=== PATIENT | female | born 1945 | race Caucasian/White ===

== ENCOUNTER → 2016-09-15 | Outpatient (CLI) | payer MEDICARE, OTHER ==
[~2016-09-15] MED LIST: ALEVE220 M1 PO; ALLERGY PILL; BACTRIM DS1 TAB PO; CALCIUM CARBON600 MG PO; COLACE100 MG PO; COMPAZINE10 MG PO; DETROL2 MG PO; DILANTIN100 MG PO; EQUATE LAXATIVE PO; GLUCOSAMINE HC500 MG PO; LEVAQUIN 750 M750 MG PO; LEVAQUIN750 MG PO; LIPITOR10 MG PO; LOMOTIL1 TAB PO; LOPERAMIDE2 MG PO; MAGNESIUM250 M1 PO; METAMUCIL FIBE1 EACH PO; MILK OF MA400 MG/5 M PO; MOTRIN400 MG PO; NORCO 5-325 MG1 TAB PO; NUCYNTA50 MG PO; PROBIOTIC1 EAC1 PO; ROXICODONE 5MG (5 MG PO; TENORMIN25 MG PO; TYLENOL325 MG PO; VITAMIN B-122500 MCG PO; VITAMIN D1000 UNIT PO
== END | disposition disaster alternative care site (69) ==
LOC: GKIC 11:20
DX: Z53.9 Procedure and treatment not carried out, unspecified reason (principal)

== ENCOUNTER → 2016-09-24 | Outpatient (CLI) | payer MEDICARE, OTHER | END | disposition disaster alternative care site (69) | LOC: GKIC 11:26 | DX: C20 Malignant neoplasm of rectum (principal); N95.0 Postmenopausal bleeding; N85.9 Noninflammatory disorder of uterus, unspecified | CPT/HCPCS: A9552 ==

== ENCOUNTER 2016-12-05 18:39 | Emergency (ER) | payer MEDICARE, OTHER ==
--- NOTE | ~2016-12-05 | ER ---
PATIENT'S NAME: MUMTAZ ULLOA [facility] AGE: 71 Y [address] ROOM: [place] [address] LOCATION: ED ADMIT DATE: 12/05/2016 ER/Outpatient Report DISCHARGE DATE: 12/05/2016 FAMILY PHYSICIAN: Jovanna Mitchell MD ATTENDING PHYSICIAN: Cornelio Lewis Admission date and time documented in the medical record. I saw the patient at 1855 hours. CHIEF COMPLAINT: Generalized weakness, shortness of breath, dysuria. HISTORY OF PRESENT ILLNESS: The patient is a 71-year-old female, who comes in with generalized weakness, that she has had gradually worsening over the past 7 to 10 days. The patient does have some lightheadedness and persistent loose stools. She is on chemotherapy for metastatic endometrial cancer. Today, she started to have some intermittent generalized muscle cramping in the major muscles. No fever, chills, or sweats. Little bit short of breath, but no cough or colds. No chest pain. No abdominal pain. No nausea or vomiting. She had some dysuria that started today along with some mild frequency. No other joint or muscle problems. No skin eruptions or rash. No headache, eyes, ears, nose, throat, neck, or spine pain. No fall or trauma. Does have a seizure disorder. No other neuro changes. No endocrine problems or psych issues. HOME MEDICATIONS: See attached medication list. ALLERGIES: SULFA AND CIPRO. SOCIAL HISTORY: Nonsmoker, nondrinker. 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 OPERATIONS: x3, cholecystectomy, cystoscopy with stent placement, right nephrectomy, colon resection with colostomy formation, radiation therapy, chemotherapy, recurrent urinary tract infections. REVIEW OF SYSTEMS: PATIENT'S NAME: MUMTAZ ULLOA [facility] AGE: 71 Y [address] ROOM: [place] [address] LOCATION: [facility] ADMIT DATE: 12/05/2016 ER/Outpatient Report DISCHARGE DATE: 12/05/2016 FAMILY PHYSICIAN: Jovanna Mitchell MD ATTENDING PHYSICIAN: Cornelio Lewis All systems reviewed by me are negative with the exception of those discussed in the history of present illness. PHYSICAL EXAMINATION: VITAL SIGNS: Pulse 105 and regular, respirations 24, blood pressure 168/105, O2 saturation on room air is 95%. HEAD: Normocephalic. No abrasion, contusion, laceration, swelling of the scalp or face. EYES: Extraocular muscles intact. PERRL. EARS: Clear TMs bilaterally. NOSE: Clear. THROAT: Clear. Mucous membranes moist. NECK: No nuchal rigidity. No thyromegaly or cervical adenopathy. No tenderness. SPINE: Negative. LUNGS: Clear. Good air flow. No rales, rhonchi, or wheezes. HEART: Regular. Pulses are palpable. ABDOMEN: Soft. Mild tenderness diffusely. No true guarding or rigidity. No rebound tenderness. Bowel tones present. No organomegaly or abnormal mass palpable. No CVA tenderness. EXTREMITIES: Without peripheral edema, cyanosis, or deformity. NEUROVASCULAR: Intact. SKIN: Clear. No skin eruptions or rash. LABORATORY DATA AND X-RAYS: Urine showed packed field whites, 5-10 reds, 2-5 epithelial cells, many bacteria per high-powered field, positive nitrites on dipstick, culture is pending. White count was 16,400, 75 segs, 12 lymphs, 9 monos, 2 eos, 1 baso, hemoglobin is 12.6, hematocrit 37.7, platelet count 311,000. CMS was normal except for a low chloride of 94, elevated glucose 124, elevated creatinine 1.6, and low GFR of 32. AST was elevated 42, alkaline phosphatase was elevated 181, magnesium was 1.8. EMERGENCY DEPARTMENT COURSE: I did give the patient 2 L normal saline IV in the emergency room with marked improvement in how she was feeling. IMPRESSION: 1. Dehydration. 2. Urinary tract infection. 3. History of endometrial cancer, spread throughout her abdomen. 4. Past history of colon cancer. 5. Seizure disorder. 6. Dyslipidemia. 7. Hypertension. PATIENT'S NAME: MUMTAZ ULLOA [facility] AGE: 71 Y [address] ROOM: [place], [place] [address] LOCATION: ED ADMIT DATE: 12/05/2016 ER/Outpatient Report DISCHARGE DATE: 12/05/2016 FAMILY PHYSICIAN: Jovanna Mitchell MD ATTENDING PHYSICIAN: Cornelio Lewis PLAN: The patient dismissed home. Observation. Activity as tolerated. Continue present home medications and care. Fluids and diet as tolerated. Nitrofurantoin 100 mg 1 twice a day for 10 days. Follow up with personal physician as scheduled. Discussion ensued the patient concerning my findings and recommendations, she understands. MD DEYVI PARK/glorial /[id number] d: 12/05/16 2338 t: 12/06/16 1809, OUTPATIENT REPORT
[~2016-12-05 18:39] MED LIST changes: -LEVAQUIN750 MG PO; -METAMUCIL FIBE1 EACH PO; -TYLENOL325 MG PO
[2016-12-05 19:15] LABS: BASOPHIL # 0.1 K/uL (0.0-0.2); BASOPHIL % 0.5 %; EOSINOPHIL # 0.3 K/uL (0.0-0.5); EOSINOPHIL % 1.9 %; HEMATOCRIT 37.7 % (33.0-46.0); HEMOGLOBIN 12.6 g/dL (10.0-15.0); IMMATURE GRANULOCYTE # 0.4 K/uL (0.0-0.3); IMMATURE GRANULOCYTE % 2.3 %; MCH 30.9 pg (27.0-34.0); MCHC 33.4 gm/dL (32.0-36.5); MCV 92.4 fl (83.0-98.0); MONOCYTE # 1.4 K/uL (0.0-1.0); MONOCYTE % 8.6 %; MPV 10.2 fl (9.4-12.4); NEUTROPHIL # (ANC) 12.2 K/uL (1.8-7.8); NEUTROPHIL % 74.7 %; NRBC % 0 /100WBC (0-0.00); PLATELET COUNT 311 K/uL (150-450); RBC 4.08 M/uL (3.50-5.50); WBC 16.4 K/uL (4.0-11.0)
[2016-12-05 19:34] LABS: ALBUMIN 3.8 gm/dL (3.5-5.0); CREATININE 1.6 mg/dL (0.5-1.1); TOTAL BILIRUBIN 0.2 mg/dL (0.0-1.5); TOTAL PROTEIN 8.6 g/dL (6.0-8.4)
[2016-12-05 19:36] LABS: ANION GAP 15.9 (10.0-19.0); MAGNESIUM 1.8 mg/dL (1.8-2.6); POTASSIUM 3.9 mMol/L (3.7-5.1)
[2016-12-05 20:57] LABS: BILIRUBIN URINE NEGATIVE (NEGATIVE); BLOOD URINE 150 /UL (NEGATIVE); COLOR URINE YELLOW (YELLOW); GLUCOSE URINE NEGATIVE (NEGATIVE); KETONE URINE NEGATIVE (NEGATIVE); LEUKOCYTES URINE 500 /UL (NEGATIVE); NITRITE URINE POSITIVE (NEGATIVE); PROTEIN URINE 100 mg/dL (NEGATIVE); SPEC GRAVITY URINE 1.015 (1.003-1.035); TURBIDITY URINE 4+ (CLEAR); UROBILINOGEN URINE NORMAL (NORMAL)
[2016-12-05 21:05] LABS: WBC URINE PACKED FIELD #/HPF (NEGATIVE)
[2016-12-05 21:06] LABS: BACTERIA URINE MANY (NEGATIVE)
== END 2016-12-05 21:32 | disposition disaster alternative care site (69) ==
LOC: GMED 18:39
PROVIDERS: Emergency Medicine
DX: E86.0 Dehydration (principal); N39.0 Urinary tract infection, site not specified; I10 Essential (primary) hypertension; E78.5 Hyperlipidemia, unspecified; G40.909 Epilepsy, unspecified, not intractable, without status epilepticus; Z85.42 Personal history of malignant neoplasm of other parts of uterus; Z85.038 Personal history of other malignant neoplasm of large intestine; Z90.5 Acquired absence of kidney; Z88.2 Allergy status to sulfonamides; Z88.1 Allergy status to other antibiotic agents; Z96.0 Presence of urogenital implants; Z92.3 Personal history of irradiation; Z79.899 Other long term (current) drug therapy; Z87.448 Personal history of other diseases of urinary system
CPT/HCPCS: J7030

== ENCOUNTER 2016-12-13 10:06 | Emergency (ER) | payer MEDICARE, OTHER ==
--- NOTE | ~2016-12-13 | ER ---
PATIENT'S NAME: MUMTAZ ULLOA [facility] AGE: 71 Y [address] ROOM: [place] [address] LOCATION: [facility] ADMIT DATE: 12/13/2016 ER/Outpatient Report DISCHARGE DATE: 12/13/2016 FAMILY PHYSICIAN: Jovanna Mitchell MD ATTENDING PHYSICIAN: Guadalupe Mcelroy Time of Arrival: 1006 hours. Time of Evaluation: 1015 hours. CHIEF COMPLAINT: Generalized weakness and history of cancer. HISTORY OF PRESENT ILLNESS: This is a 71-year-old female, who presents to the ER with her , who states that she has not been feeling very well since she woke up this morning. The patient states she has generalized weakness and has been getting some IV fluids recently to get her to feel better. They state they were here last Wednesday and received some IV fluids and that did make her feel better. They did follow up with her primary care physician, Dr. Shi, on and received some more IV fluids. Her states that she is needing this about every 3 days to make her feel better. She does have a history of metastatic endometrial cancer and she is on chemotherapy for that. The patient denies any fever or chills. No new cough or colds. No abdominal pain. No nausea or vomiting. She states that she is stooling fine through her ostomy site. She denies falling. No other problems at this time. ALLERGIES: PLEASE SEE MEDICATION LIST NURSE'S NOTES. MEDICATIONS: Please see medication list nurse's notes. PAST MEDICAL HISTORY: 1. Hypertension. 2. Dyslipidemia. 3. Seizure disorder. 4. Colon cancer. 5. Endometrial cancer, that has metastasized. 6. Right hydronephrosis with obstruction of the UV junction with resultant right nephrectomy. PAST SURGICAL HISTORY: 1. x3, cholecystectomy, cystoscopy with stent placement, right nephrectomy. 2. Colon resection with colostomy. PATIENT'S NAME: MUMTAZ ULLOA [facility] AGE: 71 Y [address] ROOM: [place] [address] LOCATION: ED ADMIT DATE: 12/13/2016 ER/Outpatient Report DISCHARGE DATE: 12/13/2016 FAMILY PHYSICIAN: Jovanna Mitchell MD ATTENDING PHYSICIAN: Navi,Guadalupe J SOCIAL HISTORY: Denies any smoking, drug, or alcohol use. REVIEW OF SYSTEMS: All systems reviewed and were negative with the exception of those discussed in the HPI. PHYSICAL EXAMINATION: VITAL SIGNS: Height 4 feet and 11 inches stated, weight 65.6 kg taken, pulse 82, respirations 18, temperature 98 degrees tympanically, and saturations 93% on room air. [place] Coma Score is 15. GENERAL: Alert, tearful, 71-year-old female, in no acute distress, but she does appear not to feel well. HEENT: Head: Normocephalic. Eyes: Pupils are equal and reactive to light. She does display moist mucous membranes. LUNGS: Clear to auscultation bilaterally. HEART: Regular rate and rhythm. ABDOMEN: Soft. She does have healed scarred lines to her abdomen. She has good output out of her ostomy site. NEURO: Cranial nerves II through XII are grossly intact. Gait is steady without assistance. SKIN: No other rashes are noted. LABORATORY DATA AND X-RAYS: CBC: White count is 8.8, hemoglobin is 10.7, and platelets 237. CMS: Sodium 137, potassium 3.5, glucose 107, BUN 8, and creatinine 0.9. Estimated GFR is greater than 60. Urinalysis; leukocytes 100, nitrites negative. UA micro; white blood cells 5 to 10, red blood cells 10 to 20, epithelial 0 to 2, bacteria negative. IMPRESSION: 1. Generalized weakness. 2. Diagnosis of metastatic endometrial cancer with a history of colon cancer. 3. Recent urinary tract infection, has improved with antibiotics. ASSESSMENT AND PLAN: The patient was having lots of tenderness around her recent port placement, so we decided to just place a peripheral IV on the patient and did give her a total of 2 L of IV fluids here and she did tolerate this well. She states this did make her feel better. We will dismiss her to home. She needs to continue to use her antibiotics that were prescribed. Monitor symptoms closely and she needs to follow up with her primary care physician in 3 days. The patient and the patient's understand and agree with care. PATIENT'S NAME: MUMTAZ ULLOA [facility] AGE: 71 Y [address] ROOM: [place] [address] LOCATION: ED ADMIT DATE: 12/13/2016 ER/Outpatient Report DISCHARGE DATE: 12/13/2016 FAMILY PHYSICIAN: Jovanna Mitchell MD ATTENDING PHYSICIAN: Guadalupe Mcelroy FEDERICA ELLIS PA-C FOR GUADALUPE MCELROY DO ACJ/modl /[id number] d: t: 12/16/16 1158, OUTPATIENT REPORT
[2016-12-13 10:44] LABS: BASOPHIL % 0.5 %; EOSINOPHIL # 0.1 K/uL (0.0-0.5); EOSINOPHIL % 1.2 %; HEMOGLOBIN 10.7 g/dL (10.0-15.0); IMMATURE GRANULOCYTE % 0.3 %; LYMPHOCYTE # 1.2 K/uL (0.8-4.0); LYMPHOCYTE % 13.1 %; MCH 30.9 pg (27.0-34.0); MCHC 33.4 gm/dL (32.0-36.5); MCV 92.5 fl (83.0-98.0); MONOCYTE # 0.8 K/uL (0.0-1.0); MONOCYTE % 9.1 %; MPV 9.6 fl (9.4-12.4); NEUTROPHIL # (ANC) 6.7 K/uL (1.8-7.8); NEUTROPHIL % 75.8 %; NRBC % 0 /100WBC (0-0.00); RBC 3.46 M/uL (3.50-5.50); RDW-CV 13.5 % (11.9-14.6); WBC 8.8 K/uL (4.0-11.0)
[2016-12-13 10:45] LABS: PLATELET COUNT 237 K/uL (150-450)
[2016-12-13 11:01] LABS: ALK PHOS 142 IU/L (33-138); ALT 26 IU/L (12-78); ANION GAP 11.5 (10.0-19.0); AST 29 IU/L (10-40); BLOOD UREA NITROGEN 8 mg/dL (6-24); CALCIUM 8.5 mg/dL (8.5-10.5); CHLORIDE 103 mMol/L (96-110); CO2 26 mMol/L (22-32); CREATININE 0.9 mg/dL (0.5-1.1); POTASSIUM 3.5 mMol/L (3.7-5.1); SODIUM 137 mMol/L (135-145); TOTAL PROTEIN 7.2 g/dL (6.0-8.4)
[2016-12-13 11:02] LABS: ESTIMATED GFR (MDRD EQUATION) > 60; TOTAL BILIRUBIN 0.3 mg/dL (0.0-1.5)
[2016-12-13 11:38] LABS: BILIRUBIN URINE NEGATIVE (NEGATIVE); BLOOD URINE 250 /UL (NEGATIVE); COLOR URINE YELLOW (YELLOW); GLUCOSE URINE NEGATIVE (NEGATIVE); KETONE URINE NEGATIVE (NEGATIVE); LEUKOCYTES URINE 100 /UL (NEGATIVE); NITRITE URINE NEGATIVE (NEGATIVE); PROTEIN URINE 30 mg/dL (NEGATIVE); SPEC GRAVITY URINE 1.005 (1.003-1.035); TURBIDITY URINE CLEAR (CLEAR); UROBILINOGEN URINE NORMAL (NORMAL)
[2016-12-13 11:47] LABS: BACTERIA URINE NEGATIVE (NEGATIVE); EPITHELIAL URINE 0-2 #/HPF (NEGATIVE)
== END 2016-12-13 12:43 | disposition disaster alternative care site (69) ==
LOC: GMED 10:06
PROVIDERS: Emergency Medicine
DX: R53.1 Weakness (principal); I10 Essential (primary) hypertension; G40.909 Epilepsy, unspecified, not intractable, without status epilepticus; E78.5 Hyperlipidemia, unspecified; N39.0 Urinary tract infection, site not specified; C18.9 Malignant neoplasm of colon, unspecified; C79.82 Secondary malignant neoplasm of genital organs; Z90.49 Acquired absence of other specified parts of digestive tract; Z90.5 Acquired absence of kidney; Z98.890 Other specified postprocedural states; Z88.2 Allergy status to sulfonamides; Z88.1 Allergy status to other antibiotic agents
CPT/HCPCS: J2001; J7030

== ENCOUNTER 2016-12-18 18:05 | Emergency (ER) | payer MEDICARE, OTHER ==
--- NOTE | ~2016-12-18 | ER ---
PATIENT'S NAME: MUMTAZ ULLOA [facility] AGE: 71 Y [address] ROOM: [place] [address] LOCATION: [facility] ADMIT DATE: 12/18/2016 ER/Outpatient Report DISCHARGE DATE: 12/18/2016 FAMILY PHYSICIAN: Jovanna Mitchell MD ATTENDING PHYSICIAN: Cornelio Lewis Admission date and time documented on the medical record. I saw the patient at 1824 hours. CHIEF COMPLAINT: Disrupted cap on her port that resulted in the port bleeding. HISTORY OF PRESENT ILLNESS: This patient is a 71-year-old female, who presented to the emergency room for inspection of her port. Her port was accessed yesterday. Cap came off about 15 minutes prior to admission to the emergency room, and the port was bleeding. She put the port cap back on. She called her oncologist, who had her report to the emergency department for evaluation and assessment of her port. The port cath cap was secured. We did flush the port successfully. Everything looks like it is functioning fine and everything is secured. No other complaints. No other problems. The patient does have a history of colon cancer, endometrial cancer with spread throughout the abdomen. She is undergoing chemotherapy. IMPRESSION: Port inspection and flushing. Port flushes normally. Port cap is secured. No other abnormalities were noted. PLAN: The patient dismissed home. Continue present home medications and care. Follow up with personal physician as needed or as scheduled. MD DEYVI PARK/modl /[id number] d: 12/18/16 232 t: 12/19/16 1809, OUTPATIENT REPORT
== END 2016-12-18 18:24 | disposition disaster alternative care site (69) ==
LOC: GMED 18:05
DX: T82.594A Other mechanical complication of infusion catheter, initial encounter (principal); Z88.1 Allergy status to other antibiotic agents; Z98.890 Other specified postprocedural states

== ENCOUNTER 2016-12-23 10:08 | Inpatient (IN) | payer MEDICARE, OTHER ==
[~2016-12-23] VITALS: Ht 149.9 cm; Wt 65.5 kg
--- NOTE | ~2016-12-23 | DS ---
PATIENT'S NAME: MUMTAZ ULLOA [facility] AGE: 71 Y [address] ROOM: [place] [address] LOCATION: [facility]PCU ADMIT DATE: 12/23/2016 Discharge Summary DISCHARGE DATE: 12/27/2016 FAMILY PHYSICIAN: Jovanna Mitchell MD ATTENDING PHYSICIAN: Patrick Rutherford ADDENDUM: Discharge medication list correction (the med list provided with the original discharge summary is incorrect). Corrected list: 1. Loperamide 6 mg p.o. q.i.d. 2. Levofloxacin 750 mg p.o. daily x7 more days. 3. Lomotil 2 tabs p.o. q.6h. p.r.n. 4. Dilantin 300 mg p.o. daily. 5. Acetaminophen 650 mg p.o. q.4 h. p.r.n. 6. Atorvastatin 10 mg p.o. q.h.s. 7. Atenolol 25 mg p.o. q.a.m. 8. Oxycodone 5 mg p.o. q.4 hours p.r.n. pain. 9. Compazine 10 mg p.o. daily p.r.n. 10. Allergy pill daily. 11. Psyllium seed 2 wafers t.i.d. MD JOSIE COUGHLIN/roger /[id number] d: 12/28/16 0256 t: 12/30/16 1436, DISCHARGE SUMMARY
--- NOTE | ~2016-12-23 | ER ---
PATIENT'S NAME: DECLAN ULLOAICE Geovanny [facility] AGE: 71 Y [address] ROOM: [place] [address] LOCATION: [facility]PCU ADMIT DATE: 12/23/2016 ER/Outpatient Report DISCHARGE DATE: FAMILY PHYSICIAN: Jovanna Mitchell MD ATTENDING PHYSICIAN: Patrick RUTHERFORD Time of Arrival: 1008 hours. Time of Evaluation: 1008 hours. CHIEF COMPLAINT: Fever, weakness. HISTORY OF PRESENT ILLNESS: The patient is a 71-year-old female who presents to the emergency department today with chief complaint of fever, weakness. Reports that she has not been feeling well. The patient does have a history of uterine cancer and colon cancer. The patient denies any chest pain. No abdominal pain. Does have some nausea. No vomiting. Has fevers and chills. Denies any headache. The pain is currently 0/10 in severity. She is having a cough. Does have shortness of breath. This is not significantly worse than her normal. Denies any back pain. No abdominal pain. No headache. PAST MEDICAL HISTORY: Hypertension, dyslipidemia, seizure disorder, colon cancer, endometrial cancer, right hydronephrosis with obstruction at the UVJ with right nephrectomy. PAST SURGICAL HISTORY: x3, cholecystectomy, cystoscopy with stent placement, right nephrectomy, colon resection with colostomy, radiation therapy, chemotherapy, recurrent urinary tract infections. SOCIAL HISTORY: The patient denies any tobacco, alcohol, or illicit drug use. ALLERGIES: BACTRIM, CIPROFLOXACIN. MEDICATIONS: Please see list. PRIMARY CARE DOCTOR: Dr. Mitchell. ONCOLOGIST: [facility]GE[facility] 71 Y [address] ROOM: [place] [address] LOCATION: GPCU ADMIT DATE: 12/23/2016 ER/Outpatient Report DISCHARGE DATE: FAMILY PHYSICIAN: Jovanna Mitchell MD ATTENDING PHYSICIAN: Patrick RUTHERFORD Dr.. REVIEW OF SYSTEMS: All systems are reviewed by myself and negative with the exception of those discussed in HPI and past medical history. PHYSICAL EXAMINATION: VITAL SIGNS: Weight 68.4 kg, blood pressure 159/74, pulse 100, respiratory rate 19, temperature 101, oxygen saturation 95% on room air. GENERAL: The patient is a 71-year-old female, who appears older than stated age. HEENT: Normocephalic, atraumatic. Pupils are equal, round, and reactive to light. Mucous membranes moist. NECK: Supple. No nuchal rigidity. CARDIOVASCULAR: Tachycardic. No murmurs, rubs, or gallops. LUNGS: Clear to auscultation bilaterally. No wheezes, rales, or rhonchi. ABDOMEN: Soft, nontender, and nondistended. No rebound, rigidity, or guarding. MUSCULOSKELETAL: The patient moves all 4 extremities. SKIN: Warm and dry. LABORATORY DATA AND X-RAYS: EKG was obtained, which is interpreted by myself at 1037 hours shows sinus tachycardia with a rate of 105 normal axis, normal interval. No ST elevation, ST depression. No T-wave inversions. CBC: White blood cell count 2.4, hemoglobin 9.8, hematocrit 29.7, platelets are 85, 30% bands. PT is 12.7, INR is 1.2. Troponin is normal. ProBNP is 160. Urinalysis shows 100 leukocyte esterase, 30 protein, 25 blood, 10 to 20 wbc's, 2 to 5 epithelials, rare bacteria. CMP: Potassium 3.2, CO2 of 21, glucose 62, alkaline phosphatase 243. LFTs normal. CK, CK-MB, and troponin are normal. Chest x-ray shows left basilar consolidation. Venous blood gas 7.42/37/60/24/negative 0.2, lactate 3.5, procalcitonin 0.97. IMPRESSION: 1. Severe sepsis. 2. Urinary tract infection. 3. Left basilar consolidation. 4. Thrombocytopenia. 5. Initial visit. EMERGENCY DEPARTMENT COURSE: The patient was brought back to the examination room. Seen immediately upon arrival by myself. IV was established. The patient was given 30 mL per kg IV bolus of normal saline. The results are obtained. The patient is also given Zosyn 4.5 g IV as well as vancomycin 1350 mg IV. Sepsis time zero is 1008 PATIENT'S NAME: MUMTAZ ULLOA [facility] AGE: 71 Y [address] ROOM: [place] [address] LOCATION: GPCU ADMIT DATE: 12/23/2016 ER/Outpatient Report DISCHARGE DATE: FAMILY PHYSICIAN: Jovanna Mitchell MD ATTENDING PHYSICIAN: Patrick RUTHERFORD. I have discussed the results of the testing with the patient and her family at the bedside. I have recommended admission to the hospital for further evaluation, treatment, and management. I have contacted Dr. Rutherford with the Hospitalist Service. He has seen and evaluated the patient down here in the emergency department. He does agree to accept the patient for further evaluation, treatment, and management. DISPOSITION: The patient was admitted under the care of Dr. Rutherford in the Hospitalist Service in stable condition. DO ALBIN GREEN/modl /[id number] d: 12/23/162009 t: 12/28/162032, OUTPATIENT REPORT
--- NOTE | ~2016-12-23 | CON ---
PATIENT'S NAME: MUMTAZ METCALF [facility] AGE: 71 Y [address] ROOM: [address] [address] LOCATION: GPCU ADMIT DATE: 12/23/2016 Consultation DISCHARGE DATE: FAMILY PHYSICIAN: Jovanna Mitchell MD ATTENDING PHYSICIAN: Patrick VINCENT REFERRING PHYSICIAN: Marek Dooley MD REASON FOR CONSULTATION: I was asked to evaluate patient with fever and recent chemotherapy. HISTORY OF PRESENT ILLNESS: Ms. 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 Currently receiving carboplatin and Taxol chemotherapy, the last cycle was given on 12/17/2016. She was over at the Cancer Center today, receiving blood transfusion and felt under the weather, fevers, and cough. She was sent to the Emergency Room for evaluation and subsequently was admitted with what was felt to be likely neutropenic fever, although technically her white cells were not neutropenic. She felt quite weak, rundown, and had cough and sputum production. She was evaluated in the Emergency Room, and a chest x-ray did demonstrate a left lower lobe, likely consolidation. She was initiated on vancomycin and Zosyn, and admitted for further evaluation and treatment. Over the last few hours, she is feeling better, resting in hospital bed, no longer febrile, and conversing with her daughter. She reportedly had a UTI noted yesterday at a Clinic visit with Dr. Shi, and was initiated on antibiotics for that. She still has some bladder pressure, which she attributes to the UTI. Additionally, she has had a little bit of loose stools each time she goes to the bathroom, and attributes this to the recent antibiotic use. She denies any issues with eating, drinking, nausea, vomiting, or appetite. REVIEW OF SYSTEMS: The remainder of the review of systems was unremarkable or negative in detail. PAST MEDICAL AND SURGICAL HISTORY: Includes 1. Epilepsy. 2. Hypertension. 3. Hyperlipidemia. 4. 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 5. Status post x3. 6. Status post cholecystectomy. FAMILY HISTORY: Non-contributory. PATIENT'S NAME: MUMTAZ METCALF [facility] AGE: 71 Y [address] ROOM: [place] [address] LOCATION: GPCU ADMIT DATE: 12/23/2016 Consultation DISCHARGE DATE: FAMILY PHYSICIAN: Jovanna Mitchell MD ATTENDING PHYSICIAN: Patrick VINCENT SOCIAL HISTORY: The patient is and lives near [place] with her , and has a daughter visiting with her today. She does not smoke and does not drink alcohol. PHYSICAL EXAMINATION: VITAL SIGNS: Blood pressure is 122/60, respirations are 20, pulse is 92, and temperature is 98.5. GENERAL: The patient appears comfortable, in no apparent distress. HEENT: Pupils are equal, round, and reactive to light. Extraocular muscles are intact. Oral mucosa is moist and pink without erythema and without lesions. NECK: Without adenopathy. HEART: Regular rate and rhythm without murmurs, rubs, or gallops. LUNGS: Diminished bilaterally. ABDOMEN: Obese. No organomegaly was appreciated. No tenderness. EXTREMITIES: Without cyanosis, clubbing, or edema. LABORATORY DATA AND DIAGNOSTIC STUDIES: Laboratory includes CBC from today with a white blood cell count of 2.4 with ANC of 2000, hemoglobin of 9.8, and platelets of 85,000; she does have 52% bands. Her renal function is unremarkable with a BUN and creatinine of 6 and 0.8 respectively. Radiologic review included a chest x-ray, which demonstrated a left basilar consolidation. UA demonstrated leukocytes and protein with 10 to 20 white blood cells per high-powered field, 0 to 2 rbc's, 2 to 5 epi's, and rare bacteria. IMPRESSION AND PLAN: Ms. 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 I do suspect she will be neutropenic in the next day or two, and she is initiated on vancomycin and Zosyn, feeling better already. Cultures are pending. Given the likely source of pneumonia and possibly urinary tract infection that was recently diagnosed, continuing on the antibiotics, and then tapering to Zosyn once the cultures are negative, would be reasonable. She did receive Neulasta at the Cancer Center the day following her chemotherapy. So, I am hopeful that the neutropenia that is ensuing will be short-lived in recovery, expedited because of that. We will follow along. At this point, I do not have any further changes in medical management. PATIENT'S NAME: MUMTAZ METCALF [facility] AGE: 71 Y [address] ROOM: [place] [address] [facility] ADMIT DATE: 12/23/2016 Consultation DISCHARGE DATE: FAMILY PHYSICIAN: Jovanna Mitchell MD ATTENDING PHYSICIAN: Patrick VINCENT MD RACHELE HUMPHREYS/roger /[id number] d: 12/24/16 0151 t: 01/12/17 1242, CONSULTATION REPORT
--- NOTE | ~2016-12-23 | DS ---
PATIENT'S NAME: MUMTAZ ULLOA [facility] AGE: 71 Y [address] ROOM: [place] [address] LOCATION: GPCU ADMIT DATE: 12/23/2016 Discharge Summary DISCHARGE DATE: 12/27/2016 FAMILY PHYSICIAN: Jovanna Mitchell MD ATTENDING PHYSICIAN: Patrick Rutherford PRIMARY DIAGNOSES: 1. Severe sepsis. 2. Acinetobacter lwoffii bacteremia. 3. Urinary tract infection. 4. Left lower lobe pneumonia by chest x-ray. 5. Uterine cancer, stage IV serous type. 6. History of rectal cancer, status post bowel resection with ileostomy and colostomy. 7. Seizure disorder. 8. Essential hypertension. 9. Dyslipidemia. 10. Anemia secondary to chemotherapy. 11. Moderate protein-calorie malnutrition. 12. Generalized weakness. OPERATIONS OR PROCEDURES: None. HISTORY OF ILLNESS/REASON FOR ADMISSION: Please refer to the H and P dictated on 12/23/[address] Rutherford. HOSPICE COURSE: The patient was admitted to the hospital as noted above with a presumptive diagnosis of severe sepsis. Cultures were obtained, and she was placed on the sepsis pathway. She received aggressive supportive cares and broad-spectrum antibiotic therapy with Zosyn and vancomycin. Clinical suspicion was for urinary tract infection versus left lower lobe pneumonia evidenced by chest x-ray. Her clinical condition was poor. She received aggressive IV fluid hydration therapy and actually tolerated that pretty well. Her clinical condition slowly improved. Blood cultures returned gram-negative rods, which eventually showed Acinetobacter lwoffii. This was felt to be appropriately covered with IV Zosyn. The vancomycin was discontinued. She remained hemodynamically stable over the course of her hospital stay. She did receive some restorative care and physical therapy and occupational therapy. She was felt to require Home Health and home physical therapy, and so we did request this. She did experience significant output from the ileostomy. This required PATIENT'S NAME: MUMTAZ ULLOA [facility] AGE: 71 Y [address] ROOM: [place] [address] LOCATION: GPCU ADMIT DATE: 12/23/2016 Discharge Summary DISCHARGE DATE: 12/27/2016 FAMILY PHYSICIAN: Jovanna Mitchell MD ATTENDING PHYSICIAN: Patrick Rutherford almost daily IV fluid supplementation in order to maintain even fluid balance. It was felt that she would probably require outpatient followup with [facility] for continued fluid therapy. By the end of the 6th day of her hospital stay, it was felt she would be stable enough for discharge to home on oral antibiotic regimen, attention to dietary hygiene, outpatient physical therapy, and close clinical followup with [facility] as well as her primary care provider, Dr. Jovanna Mitchell. DISCHARGE INSTRUCTIONS: DIET: Regular as tolerated. ACTIVITY: As tolerated. MEDICATIONS: 1. Levofloxacin 750 mg p.o. daily. 2. Albuterol HFA 2 puffs p.o. q.4 hours p.r.n. 3. Oxygen per nasal cannula 2 L p.r.n. shortness of breath. 4. Zofran 4 mg p.o. q.6 hours p.r.n. 5. Tessalon Perles 200 mg p.o. q.8 hours p.r.n. 6. Probiotic daily. 7. VESIcare 5 mg p.o. daily. 8. Acetaminophen 325 mg 2 tabs p.o. q.4 hours p.r.n. 9. Loperamide 4 mg p.o. q.i.d. p.r.n. 10. Revlimid 15 mg p.o. daily p.r.n. 11. Topamax 300 mg p.o. b.i.d. 12. Bactrim DS 1 tablet p.o. q.Wednesday and . 13. Dilantin 200 mg p.o. q.a.m. and 200 mg p.o. q.p.m. on Wednesday, Wednesday, Wednesday; and 300 mg p.o. q.p.m. on Wednesday, , Wednesday, Wednesday. 14. Neosporin applied topically b.i.d. 15. Protonix 40 mg p.o. q.a.m. 16. Levothyroxine 137 mcg p.o. daily. 17. Keppra 1000 mg p.o. b.i.d. 18. Insulin glargine 12 units subcu q.h.s. 19. Insulin aspart per sliding scale with meals and at bedtime. 20. Flonase nasal spray 2 sprays each nostril daily. 21. Iron 325 mg p.o. b.i.d. 22. Lexapro 20 mg p.o. daily. 23. Voltaren gel 1%, apply topically twice a day. 24. Vitamin B12 a 1000 mcg IM q.28 days. 25. Aspirin 325 mg p.o. b.i.d. 26. Amlodipine 10 mg p.o. daily. 27. [place] 5/325 one to two tabs p.o. q.4 hours p.r.n. and 1 tablet p.o. b.i.d. scheduled. PATIENT'S NAME: MUMTAZ ULLOA [facility] AGE: 71 Y [address] ROOM: [place] [address] LOCATION: GPCU ADMIT DATE: 12/23/2016 Discharge Summary DISCHARGE DATE: 12/27/2016 FAMILY PHYSICIAN: Jovanna Mitchell MD ATTENDING PHYSICIAN: Patrick Rutherford FOLLOWUP: She will follow up with Dr. Jovanna Mitchell in 5 to 7 days. She will have [facility] for IV fluid and follow up with Oncology as previously scheduled. She will have Home Health through [facility] with Home Physical therapy, Occupational therapy, and residential. CONDITION ON DISCHARGE: Fair. Total time spent on discharge process 50 minutes. MD JOSIE COUGHLIN/roger /[id number] d: 12/28/16 0353 t: 12/30/16 1433, DISCHARGE SUMMARY
--- NOTE | ~2016-12-23 | HP ---
PATIENT'S NAME: MUMTAZ ULLOA [facility] AGE: 71 Y [address] ROOM: [address] [address] LOC[facility] ADMIT DATE: 12/23/2016 History & Physical DISCHARGE DATE: FAMILY PHYSICIAN: Jovanna Mitchell MD ATTENDING PHYSICIAN: Patrick VINCENT DATE OF SERVICE: CHIEF COMPLAINT: Severe sepsis. HISTORY OF PRESENT ILLNESS: The patient is a 71-year-old female with a past medical history of colon cancer, status post chemoradiation and resection; uterine cancer, currently on chemo; and history of multiple UTIs in the past, who presents here with fever and chills. The patient currently is being seen by Dr. Shi for her uterine carcinoma which is unresectable with omental and peritoneal disease, currently on carboplatin and Taxol, just received her second cycle, and was noted to have 2 days' history of chills and fever. The patient was seen today and was noted to have chills with elevated temperature. The patient was transferred to the emergency department for further evaluation. The patient reports that she has been experiencing 1-day history of dry cough and 2 days' history of fever, chills, and generalized fatigue. The patient was recently diagnosed with UTI and currently on Levaquin. Levaquin was started yesterday. The patient denies any chest pain, nausea, vomiting, abdominal pain, vision change, and headache. The patient reports that lately she has noted her ileostomy output has increased. In the emergency department, the patient was noted to have elevated temperature and elevated bandemia with elevated lactate. The patient was started on vancomycin and Zosyn. Chest x-ray shows possible left basilar consolidation. PAST MEDICAL HISTORY: 1. Seizure disorder, last seizure in 2004, on Dilantin. 2. History of colon cancer, status post chemoradiation and resection. 3. Uterine cancer, currently on chemo on carboplatin and Taxol. PAST SURGICAL HISTORY: 1. Colostomy bag in 2004 for her colon surgery. 2. Three C-sections. 3. 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 4. Ileostomy bag secondary to complication of perforated bowel during biopsy for her uterine cancer at [facility] in the beginning of this year. PATIENT'S NAME: MUMTAZ ULLOA [facility] AGE: 71 Y [address] ROOM: [place] [address] LOCATION: GPCU ADMIT DATE: 12/23/2016 History & Physical DISCHARGE DATE: FAMILY PHYSICIAN: Jovanna Mitchell MD ATTENDING PHYSICIAN: Patrick VINCENT FAMILY HISTORY: Father had heart disease. Reports that mother of infection. SOCIAL HISTORY: The patient does not drink or smoke. She is a retired high school music director. MEDICATIONS: Currently being reconciled. REVIEW OF SYSTEMS: All systems have been reviewed and are negative except for what is mentioned in the HPI. PHYSICAL EXAMINATION: VITAL SIGNS: Temperature 101, blood pressure 154/74, pulse rate of 100, respiratory rate of 19, and saturating 95% on room air. HEAD: Normocephalic, atraumatic. EYES: Extraocular muscle intact. GENERAL APPEARANCE: The patient is lying on the bed, in no acute distress. CHEST: Decreased breath sounds in the left lower lung field. No wheezing. No rales. No rhonchi. HEART: Tachycardic. No murmurs, rubs, or gallops. ABDOMEN: Soft, nontender, and nondistended. The patient has a colostomy bag and an ileostomy bag. SKIN: Warm to touch. CENTRAL NERVOUS SYSTEM: The patient is alert and oriented x3. Motor and sensory grossly intact. LABORATORY DATA: Chest x-ray shows left basilar consolidation. Lactate of 3.5. Negative troponin x1. The pH is 7.42 and pCO2 of 37. White blood cell count of 2.4, hemoglobin of 9.8, platelets of 85, and 30% bandemia. Potassium of 3.2, chloride of 104, CO2 of 21, BUN of 6, and creatinine of 0.8. UA shows pyuria with white blood cell count of 10 to 20. Procalcitonin of 0.97. ASSESSMENT AND PLAN: 1. Severe sepsis. Severe sepsis identified at 10:08 a.m. Etiology PATIENT'S NAME: MUMTAZ ULLOA [facility] AGE: 71 Y [address] ROOM: [place] [address] LOCATION: GPCU ADMIT DATE: 12/23/2016 History & Physical DISCHARGE DATE: FAMILY PHYSICIAN: Jovanna Mitchell MD ATTENDING PHYSICIAN: Patrick VINCETN secondary most likely due to pneumonia. Etiology most likely healthcare- associated pneumonia. We will start the patient on vancomycin and Zosyn. We will acquire blood culture and sputum culture. Also, get urine Legionella and strep antigen. The patient also has a recent history of dysuria with positive UA. We will acquire a urine culture also. Interestingly, the patient also reports of increased output in her ileostomy bag suspicious for Clostridium difficile is also considered. We will acquire Clostridium difficile on the ileostomy output. The patient has received 30 mL/kg fluid in the emergency department. We will start 100 mL an hour of IV fluid. We will continue vancomycin and Zosyn. Awaiting for blood culture, urine culture, and Clostridium difficile results. 2. Hospital healthcare-associated pneumonia. See problem #1. 3. Uterine cancer, ongoing. We will consult Oncology during stay. History of uterine cancer, is unresectable with omental and peritoneal disease, currently on carboplatin and Taxol, to have 6-cycle treatment, currently received her second cycle. The patient is being seen by Dr. Shi as outpatient. 4. Hypokalemia, most likely secondary to increased ileostomy bag output. We will supplement potassium. 5. Seizure disorder. We will continue the patient's phenytoin. 6. Physical deconditioning. We will consult PT and OT. 7. Anemia, most likely secondary to malignancy. No signs of active bleeding. 8. Thrombocytopenia. No signs of bleeding. Etiology most likely secondary to chemo and malignancy. Greater than 77 minutes were spent on patient care, 50% of the time was spent on direct patient care. Case was discussed with Dr. Mcelroy in the emergency department. All questions were answered to satisfaction. We will admit the patient as an inpatient for severe sepsis. Code status discussed during this admission. Code status is DNR, but okay for intubation. MD DAISY MCGUIRE/roger /[id number] D: 842 T: 233 HISTORY & PHYSICAL
[~2016-12-23 10:08] MED LIST changes: -LEVAQUIN750 MG PO; -METAMUCIL FIBE1 EACH PO; -TYLENOL325 MG PO
[2016-12-23 10:41] LABS: HEMATOCRIT 29.7 % (33.0-46.0); HEMOGLOBIN 9.8 g/dL (10.0-15.0); MCH 30.7 pg (27.0-34.0); MCV 93.1 fl (83.0-98.0); MPV 10.5 fl (9.4-12.4); PLATELET COUNT 85 K/uL (150-450); RBC 3.19 M/uL (3.50-5.50); RDW-CV 14.6 % (11.9-14.6); WBC 2.4 K/uL (4.0-11.0)
[2016-12-23 10:50] LABS: INR - (THERAPEUTIC) 1.21 (0.92-1.07); PROTIME 12.7 SECONDS (9.8-11.4)
[2016-12-23 11:04] LABS: ALBUMIN 3.1 gm/dL (3.5-5.0); ALK PHOS 243 IU/L (33-138); ALT 17 IU/L (12-78); ANION GAP 16.2 (10.0-19.0); AST 18 IU/L (10-40); BLOOD UREA NITROGEN 6 mg/dL (6-24); CALCIUM 8.5 mg/dL (8.5-10.5); CHLORIDE 104 mMol/L (96-110); CO2 21 mMol/L (22-32); CPK 26 IU/L (21-215); CREATININE 0.8 mg/dL (0.5-1.1); ESTIMATED GFR (MDRD EQUATION) > 60; POTASSIUM 3.2 mMol/L (3.7-5.1); SODIUM 138 mMol/L (135-145)
[2016-12-23 11:06] LABS: BILIRUBIN URINE NEGATIVE (NEGATIVE); BLOOD URINE 25 /UL (NEGATIVE); COLOR URINE YELLOW (YELLOW); GLUCOSE URINE NEGATIVE (NEGATIVE); KETONE URINE NEGATIVE (NEGATIVE); LEUKOCYTES URINE 100 /UL (NEGATIVE); NITRITE URINE NEGATIVE (NEGATIVE); PROTEIN URINE 30 mg/dL (NEGATIVE); TURBIDITY URINE CLEAR (CLEAR); UROBILINOGEN URINE NORMAL (NORMAL)
[2016-12-23 11:07] LABS: TOTAL BILIRUBIN 0.5 mg/dL (0.0-1.5)
[2016-12-23 11:13] LABS: BANDED NEUTROPHIL # 0.7 K/uL (0.0-0.1); BANDED NEUTROPHILS % 30 %; LYMPHOCYTE # 0.4 K/uL (0.8-4.0); LYMPHOCYTE % 15 %; SEGMENTED NEUTROPHIL # 1.3 K/uL (1.8-7.8); SEGMENTED NEUTROPHIL % 52 %
[2016-12-23 11:18] LABS: BACTERIA URINE RARE (NEGATIVE); MUCUS URINE 1+ (NEGATIVE); RBC URINE 0-2 #/HPF (NEGATIVE)
[2016-12-23 11:21] LABS: LACTATE 3.5 mEq/L (0.50-1.60); PCO2 37 mmHg (35-45); PO2 60 mmHg (80-90)
[2016-12-23] MEDS ORDERED: TYLENOL325 MG PO (15:35)
[2016-12-23] MEDS ORDERED: LEVAQUIN750 MG PO (15:36)
[2016-12-23] MEDS ORDERED: METAMUCIL FIBE1 EACH PO (15:38)
--- NOTE | 2016-12-23 19:19 | NUR ---
Significant Event: A/O X3, pale, family @ bedside, cooperative, L)chest portacath patent. recio inserted per sepsis protocol. L)ostomy non-functioning, R)ostomy patent with liquid green stool. good appetite, trace edema to extremities. having menses. lungs dim BLL, o2 2l/nc, Follow up: monitor
--- NOTE | 2016-12-23 19:22 | NUR ---
admitted from ER. Iron infusion given @ cancer center today, started feeling chills & confusion. last chemo dose was 12/17/16. L)portacath accessed at Cancer Center. Family @ bedside. recio inserted per sepsis protocol. L)ostomy placed in 2004 (non-functioning), R) ostomy placed 10/27/16.
--- NOTE | 2016-12-24 05:29 | NUR ---
significant event: A/O x 3. Pressures in the 80's-90's for most of the night. ordered 1L bolus and said to keep maps greater than 65 and to call if she drops below that. Her lowest Map has been 66 throughout the night so far. positive blood cultures called to with gram negative rods that were drawn in ER yesterday. All other vss have been stable. Tylenol given at 0100 for bilat foot pain with releif noted. Intermit antibiotics running through her left chest port.
[2016-12-24 05:31] LABS: MCV 94.7 fl (83.0-98.0); MPV 10.9 fl (9.4-12.4); PLATELET COUNT 81 K/uL (150-450); RBC 2.47 M/uL (3.50-5.50); WBC 8.2 K/uL (4.0-11.0)
[2016-12-24 05:35] LABS: HEMATOCRIT 23.4 % (33.0-46.0); HEMOGLOBIN 7.6 g/dL (10.0-15.0); MCH 30.8 pg (27.0-34.0); MCHC 32.5 gm/dL (32.0-36.5)
[2016-12-24 05:49] LABS: ALBUMIN 2.3 gm/dL (3.5-5.0); ALK PHOS 126 IU/L (33-138); ALT 15 IU/L (12-78); ANION GAP 9.4 (10.0-19.0); AST 15 IU/L (10-40); BLOOD UREA NITROGEN 6 mg/dL (6-24); CHLORIDE 114 mMol/L (96-110); CO2 23 mMol/L (22-32); CREATININE 0.7 mg/dL (0.5-1.1); ESTIMATED GFR (MDRD EQUATION) > 60; POTASSIUM 3.4 mMol/L (3.7-5.1); SODIUM 143 mMol/L (135-145); TOTAL BILIRUBIN 0.4 mg/dL (0.0-1.5); TOTAL PROTEIN 5.3 g/dL (6.0-8.4)
[2016-12-24 05:54] LABS: CALCIUM 7.1 mg/dL (8.5-10.5)
[2016-12-24 07:47] LABS: ABSOLUTE NEUTROPHIL CT (ANC) 5.5 K/uL (1.8-7.8); BANDED NEUTROPHIL # 0.8 K/uL (0.0-0.1); BANDED NEUTROPHILS % 10 %; LYMPHOCYTE # 1.1 K/uL (0.8-4.0); LYMPHOCYTE % 14 %; MONOCYTE # 1.2 K/uL (0.0-1.0); SEGMENTED NEUTROPHIL # 4.7 K/uL (1.8-7.8); SEGMENTED NEUTROPHIL % 57 %
[2016-12-24 15:44] LABS: HEMATOCRIT 23.4 % (33.0-46.0)
[2016-12-24 15:46] LABS: HEMOGLOBIN 7.8 g/dL (10.0-15.0)
--- NOTE | 2016-12-24 16:32 | NUR ---
Significant Event: A/OX3, VSS ON ROOM AIR. TYLENOL GIVEN X2 LAST @ 1447 FOR COMPLAINTS OF PAIN. LEFT CHEST PORT NEEDLE HAS NS @ 100mL/HR, CONTINUES ON ZOSYN & VANCO. PORT NEEDLE/DRESSING NEEDS CHANGED TODAY, WHEN IVF ARE SL. REPOSITIONS Q2HR IN BED. FAMILY HERE. LEFT COLOSTOMY BAG CHANGED PER WOC NURSE TODAY-WITH NO OUTPUT, RIGHT ILEOSTOMY SITE FINE, 1400mL STOOL OUT THIS SHIFT. [place] INTACT WITH 300mL UOP. IMMODIUM GIVEN X1 @ 1223. LAST HGB CHECK WAS 7.8. Follow up: CONTINUE WITH POC.
[2016-12-25 04:15] LABS: ALBUMIN 2.5 gm/dL (3.5-5.0); ANION GAP 10.3 (10.0-19.0); CALCIUM 7.6 mg/dL (8.5-10.5); CREATININE 0.7 mg/dL (0.5-1.1); POTASSIUM 3.3 mMol/L (3.7-5.1); TOTAL PROTEIN 5.7 g/dL (6.0-8.4)
[2016-12-25 04:16] LABS: TOTAL BILIRUBIN 0.3 mg/dL (0.0-1.5)
[2016-12-25 04:21] LABS: HEMATOCRIT 24.3 % (33.0-46.0); HEMOGLOBIN 8.1 g/dL (10.0-15.0); MCH 31.3 pg (27.0-34.0); MCHC 33.3 gm/dL (32.0-36.5); MCV 93.8 fl (83.0-98.0); MPV 11.4 fl (9.4-12.4); PLATELET COUNT 97 K/uL (150-450); RBC 2.59 M/uL (3.50-5.50); RDW-CV 14.7 % (11.9-14.6); WBC 7.7 K/uL (4.0-11.0)
--- NOTE | 2016-12-25 05:01 | NUR ---
Significant Event: REPO Q2 HOURS. VSS ON RA, AFEBRILE. ILEOSTOMY HAD 2250 OUTPUT, [place] 250 UOP. TYLENOL GIVEN X 1 AT 2100 FOR GENERALIZED PAIN. LEFT CHEST PORT CHANGED, HAS NO COMPLICATIONS AND GOOD BLOOD RETURN. CONTINOUS ON ZOSYN, VANCO. NO COMPLICATIONS DURING THE EVENING, COOPERATIVE WITH CARES. Follow up:
[2016-12-25 05:48] LABS: ABSOLUTE NEUTROPHIL CT (ANC) 5.1 K/uL (1.8-7.8); BANDED NEUTROPHILS % 13 %; LYMPHOCYTE # 0.9 K/uL (0.8-4.0); LYMPHOCYTE % 12 %; MONOCYTE # 1.1 K/uL (0.0-1.0); SEGMENTED NEUTROPHIL # 4.1 K/uL (1.8-7.8); SEGMENTED NEUTROPHIL % 53 %
--- NOTE | 2016-12-25 16:11 | NUR ---
Significant Event: A/OX3, VSS ON RA. NO COMPLAINTS OF PAIN. UP TO CHAIR TODAY, WALKED WITH PHYSICAL THERAPY IN HALLS. POSSIBLE D/C TO HOME WITH HOME HEALTH IN AM. 2gm OF MAG GIVEN TODAY X1. CHELAO D/C'D, CONTINUES ON ZOSYN. LEFT CHEST PORT IV. 2800mL OUT ILEOSTOMY TODAY. 400mL OUT DE [place] CRUZ BEFORE BEING D/C'D @ 1300, NO VOID YET. Follow up: CONTINUE WITH POC.
--- NOTE | 2016-12-25 16:20 | NUR ---
Introduced self and CM role to Jeanne, her and her daughter who were all at bedside. Jeanne lives at home with her in [place] and it is her plan to return there when able to do so. Jeanne PCP is Dr.Annette Mitchell. She manages her own medications at home and states she will continue to do this when she goes home. [facility] She has no concerns about returning home. Let her know that I had talked with and he thinks that [facility] would benifit her when she goes home. Gave them options of both [facility] and [facility]. After answering many of their questions and making phone calls to them, Jeanne and family have decided to go with [facility]. Inital referral information and filled out F2F was gathered and faxed to [facility], [phone]. Also called and talked with Fanny, let her know I had faxed the information and family would like for her to have Family Physical Therapy when she is with them. She tells me that she has already got the fax and will be able to take on Lillian' care. and daughter tells me that they will take her home when ready to dismiss. No other questions needs or concerns at this time. F2F was given to and he filled it out already. Placed a sticky note on the chart to remind nursing if she would dismiss over the weekend to CALL and FAX in her dismissal information to [facility]. Fax cover letter is on the chart along with all the numbers that they should need. CM to continue to follow and assist. Plan home with [facility].
[2016-12-26 03:46] LABS: ALBUMIN 2.6 gm/dL (3.5-5.0); ANION GAP 9.8 (10.0-19.0); CALCIUM 8.1 mg/dL (8.5-10.5); CREATININE 0.7 mg/dL (0.5-1.1); HEMATOCRIT 24.6 % (33.0-46.0); HEMOGLOBIN 8.3 g/dL (10.0-15.0); MCHC 33.7 gm/dL (32.0-36.5); MCV 91.8 fl (83.0-98.0); MPV 10.9 fl (9.4-12.4); PLATELET COUNT 109 K/uL (150-450); RBC 2.68 M/uL (3.50-5.50); RDW-CV 14.6 % (11.9-14.6); TOTAL BILIRUBIN 0.3 mg/dL (0.0-1.5); TOTAL PROTEIN 6.1 g/dL (6.0-8.4); WBC 8.7 K/uL (4.0-11.0)
[2016-12-26 03:50] LABS: POTASSIUM 2.8 mMol/L (3.7-5.1)
[2016-12-26 04:21] LABS: ABSOLUTE NEUTROPHIL CT (ANC) 6.2 K/uL (1.8-7.8); BANDED NEUTROPHIL # 1.5 K/uL (0.0-0.1); BANDED NEUTROPHILS % 17 %; LYMPHOCYTE # 1.4 K/uL (0.8-4.0); LYMPHOCYTE % 15 %; MONOCYTE # 0.6 K/uL (0.0-1.0); SEGMENTED NEUTROPHIL # 4.7 K/uL (1.8-7.8); SEGMENTED NEUTROPHIL % 54 %
--- NOTE | 2016-12-26 04:29 | NUR ---
Significant Event: VSS ON RA. NO COMPLICATIONS THIS EVENING. NO PAIN. RESTED WELL THIS EVENING. POSSIBLE DISCHARGE WITH HOME HEALTH TODAY. Follow up:
--- NOTE | 2016-12-26 17:38 | NUR ---
Significant Event: A/Ox3. [id number]. P-80-90s. Afebrile. Room air with saturations in the mid 90s. Denies SOB. L) chest port running NS at 200ml/hr x2 liters 1 bag running now. IV zosyn continued. Iliostomy had 3700ml out of dark yellow to light brown drainage this shift. Colostomy had 1 sm BM. Patient also voided 200ml in the toilet. Up with SBA. Patient denies pain. 40mEq of KCL given IV and 20mEq where given PO. Pleasant and cooperative with cares.
[2016-12-27 04:08] LABS: ALBUMIN 2.5 gm/dL (3.5-5.0); ANION GAP 9.4 (10.0-19.0); CALCIUM 7.8 mg/dL (8.5-10.5); CREATININE 0.7 mg/dL (0.5-1.1); POTASSIUM 3.4 mMol/L (3.7-5.1); TOTAL BILIRUBIN 0.3 mg/dL (0.0-1.5); TOTAL PROTEIN 5.8 g/dL (6.0-8.4)
[2016-12-27 04:13] LABS: HEMATOCRIT 24.2 % (33.0-46.0); HEMOGLOBIN 8.1 g/dL (10.0-15.0); MCH 31.6 pg (27.0-34.0); MCHC 33.5 gm/dL (32.0-36.5); MCV 94.5 fl (83.0-98.0); PLATELET COUNT 110 K/uL (150-450); RBC 2.56 M/uL (3.50-5.50); RDW-CV 15.2 % (11.9-14.6); WBC 7.1 K/uL (4.0-11.0)
--- NOTE | 2016-12-27 04:20 | NUR ---
Significant event: A/O x 3. Up to the bathroom with standby to 1 assist. No c/o pain. VSS. 2L NS finished, patient IV is saline locked now. 975ml out of ostomy bag. Plan to dischange home today possibly.
[2016-12-27 04:48] LABS: ABSOLUTE NEUTROPHIL CT (ANC) 5.6 K/uL (1.8-7.8); BANDED NEUTROPHIL # 1.1 K/uL (0.0-0.1); BANDED NEUTROPHILS % 15 %; LYMPHOCYTE # 1.1 K/uL (0.8-4.0); LYMPHOCYTE % 16 %; MONOCYTE # 0.2 K/uL (0.0-1.0); SEGMENTED NEUTROPHIL # 4.5 K/uL (1.8-7.8); SEGMENTED NEUTROPHIL % 64 %
--- NOTE | 2016-12-27 14:50 | NUR ---
written and verbal dismissal instructions given to pt. and including diet, activity, medications, blood clot prevention and follow up care. verbalized understanding. escorted per w/c to ride home in stable condition.
== END 2016-12-27 14:50 | disposition home health service (06) | DRG 871 ==
LOC: GMED 10:08 → GPCU 12:17
PROVIDERS: Emergency Medicine; Family Medicine; ADMIT Internal Medicine
DX: A41.9 Sepsis, unspecified organism (principal); J18.9 Pneumonia, unspecified organism; E44.0 Moderate protein-calorie malnutrition; C79.82 Secondary malignant neoplasm of genital organs; N39.0 Urinary tract infection, site not specified; D64.81 Anemia due to antineoplastic chemotherapy; R65.20 Severe sepsis without septic shock; B96.89 Other specified bacterial agents as the cause of diseases classified elsewhere; Z66 Do not resuscitate; Z85.048 Personal history of other malignant neoplasm of rectum, rectosigmoid junction, and anus; G40.909 Epilepsy, unspecified, not intractable, without status epilepticus; I10 Essential (primary) hypertension; E78.5 Hyperlipidemia, unspecified; R53.1 Weakness; Z92.21 Personal history of antineoplastic chemotherapy
CPT/HCPCS: J1650; J2405; J2543; J2916; J3370; J3475; J3480; J7030; J7040; J7050

== ENCOUNTER → 2016-12-23 | Outpatient (CLI) | payer MEDICARE, OTHER ==
[~2016-12-23] MED LIST changes: +LEVAQUIN750 MG PO; +METAMUCIL FIBE1 EACH PO; +TYLENOL325 MG PO
== END | disposition disaster alternative care site (69) ==
LOC: GAMB 09:59
DX: R50.9 Fever, unspecified (principal); C18.9 Malignant neoplasm of colon, unspecified; N39.0 Urinary tract infection, site not specified; Z79.899 Other long term (current) drug therapy
CPT/HCPCS: A0422; A0425; A0429

== ENCOUNTER → 2017-01-21 | Outpatient (CLI) | payer MEDICARE, OTHER ==
[~2017-01-21] MED LIST changes: +LEVAQUIN750 MG PO; +METAMUCIL FIBE1 EACH PO; +TYLENOL325 MG PO
== END | disposition disaster alternative care site (69) ==
LOC: GRAD 11:30
DX: C55 Malignant neoplasm of uterus, part unspecified (principal); C20 Malignant neoplasm of rectum; C54.1 Malignant neoplasm of endometrium; D70.1 Agranulocytosis secondary to cancer chemotherapy; E83.42 Hypomagnesemia; I95.1 Orthostatic hypotension; D50.9 Iron deficiency anemia, unspecified; K90.9 Intestinal malabsorption, unspecified; E87.6 Hypokalemia; L29.9 Pruritus, unspecified; R50.9 Fever, unspecified; R11.0 Nausea; R19.00 Intra-abdominal and pelvic swelling, mass and lump, unspecified site; Z93.3 Colostomy status
CPT/HCPCS: A9577